=== PATIENT | female | born 1985 | race Caucasian/White ===

== ENCOUNTER 2024-01-07 07:37 | Outpatient (CLI) | payer OTHER, SELFPAY ==
--- NOTE | ~2024-01-07 | XR_ITS ---
XR wrist LT min 3V 01/07/2024 07:49 INDICATION: Left wrist pain after fall PROCEDURE: 4 views left wrist COMPARISON: No prior studies for comparison. FINDINGS: Fracture, dislocation or subluxation is not identified. The soft tissues appear within norm al limits. No foreign bodies are identified. IMPRESSION: 1: NO ACUTE BONE OR JOINT ABNORMALITY IDENTIFIED. Reviewed, dictated and finalized at location B.
== END 2024-01-07 07:38 ==
PROVIDERS: PCP Physician Assistant; Visit Provider Physician Assistant
DX: M25.532 Pain in left wrist (principal)
CPT/HCPCS: 73110

== ENCOUNTER 2025-05-29 20:23 | Emergency (ER) | payer OTHER, SELFPAY ==
--- NOTE | ~2025-05-29 | CT_ITS ---
CT FACIAL BONES WITHOUT CONTRAST INDICATION: Fall COMPARISON: None. TECHNIQUE: Axial 2.5 mm images of the maxillofacial bones/sinuses were obtained without contrast. Additional axial, coronal and sagittal reformatted images were rendered. FINDINGS: Right periorbital soft tissue swelling and soft tissue gas are noted. There is a fracture of the medial right orbital wall. There is fluid within the right ethmoid. Remaining visualized paranasal sinuses and mastoid air cells are clear. Nasal septum is deviated to the left. No soft tissue swelling or foreign body is noted. The temporomandibular joint alignment is maintained. IMPRESSION: Right medial orbital wall fracture with right periorbital soft tissue swelling. There is fluid in the right ethmoid's. All CT scans at this facility are performed using low dose modulation techniques as appropriate to perform exam including the following: automated exposure control; use of iterative reconstruction technique; adjustment of the mA and/or kV according to patient size (this includes techniques or standardized protocols for targeted exams where dose is matched to indication/reason for exam). CT facial & cervical spine wo HISTORY: fall, intoxication COMPARISON: None TECHNIQUE: Axial images of the cervical spine were obtained. Multiplanar reconstruction in the coronal, sagittal and axial reformats to evaluate for cervical fracture. FINDINGS: The images demonstrate no acute fracture or paravertebral soft tissue swelling. There is no high-grade central or foraminal stenosis. No significant degenerative changes are noted. The visualized aspect of the upper lungs are clear. IMPRESSION: No acute fracture or subluxation. All CT scans at this facility are performed using low dose modulation techniques as appropriate to perform exam including the following: automated exposure control; adjustment of the mA and/or kV according to patient size (this includes techniques or standardized protocols for targeted exams where does is matched to indication/reason for exam; i.e. extremities or head); use of iterative reconstruction technique). Reviewed, dictated and finalized at location S. ASSESSOR IMPRESSION: Right medial orbital wall fracture with right periorbital soft tiss ue swelling. There is fluid in the right ethmoid's. All CT scans at this facility are performed using low dose modulation techniqu es as appropriate to perform exam including the following: automated exposure c ontrol; use of iterative reconstruction technique; adjustment of the mA and/or kV according to patient size (this includes techniques or standardized protocol s for targeted exams where dose is matched to indication/reason for exam). CT facial & cervical spine wo HISTORY: fall, intoxication COMPARISON: None TECHNIQUE: Axial images of the cervical spine were obtained. Multiplanar recons truction in the coronal, sagittal and axial reformats to evaluate for cervical fracture. FINDINGS: The images demonstrate no acute fracture or paravertebral soft tissue swelling. There is no high-grade central or foraminal stenosis. No significa nt degenerative changes are noted. The visualized aspect of the upper lungs are clear. IMPRESSION: No acute fracture or subluxation. All CT scans at this facility are performed using low dose modulation techniqu es as appropriate to perform exam including the following: automated exposure c ontrol; adjustment of the mA and/or kV according to patient size (this includes techniques or standardized protocols for targeted exams where does is matched to indication/reason for exam; i.e. extremities or head); use of iterative hussain nstruction technique).
--- NOTE | ~2025-05-29 | CT_ITS ---
CT brain wo con HISTORY:fall, intoxication COMPARISON: None. TECHNIQUE: Axial images were obtained of the head without intravenous contrast. FINDINGS: No acute intracranial hemorrhage, mass effect or midline shift. No extra-axial fluid collections. The calvarium is intact. There is right periorbital soft tissue swelling and gas. There are opacification of the right ethmoid's. IMPRESSION: No acute intracranial hemorrhage or extra axial fluid collections. All CT scans at this facility are performed using low dose modulation techniques as appropriate to perform exam including the following: automated exposure control; use of iterative reconstruction technique; adjustment of the mA and/or kV according to patient size (this includes techniques or standardized protocols for targeted exams where dose is matched to indication/reason for exam). Reviewed, dictated and finalized at location S. 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 All CT scans at this facility are performed using low dose modulation techniqu es as appropriate to perform exam including the following: automated exposure c ontrol; use of iterative reconstruction technique; adjustment of the mA and/or kV according to patient size (this includes techniques or standardized protocol s for targeted exams where dose is matched to indication/reason for exam).
[2025-05-29 20:50] VITALS: BP 109/71; PULSE 109; RESP 23; TEMP 36.8; O2SAT 100
[2025-05-29] MEDS: ONDANSETRON HCL ODT 4 MG TABLET PO (22:47)
[2025-05-29] MEDS: HYDROcodone/acetaminophen (*CRX) 5-325 MG TABLET 1 TAB PO (22:47)
[2025-05-29] MEDS: ACETAMINOPHEN 500 MG TABLET 1000 MG PO (22:47)
[2025-05-30] MEDS: ONDANSETRON HCL ODT 4 MG TABLET PO (00:28)
[2025-05-30 01:02] VITALS: BP 111/75; PULSE 100; RESP 20; O2SAT 100
[2025-05-30] MEDS: TETANUS,DIPHTHERIA,AC PERTUSSIS ADULT (0.5 ML) BOOSTRIX IM (01:14)
[2025-05-30] MEDS: HYDROcodone/acetaminophen (*CRX) 10-325 MG TABLET 1 TAB PO (01:29)
--- NOTE | 2025-05-30 03:11 | ED.GENADULT ---
HPI - General Adult General Chief complaint: Wound/Laceration Stated complaint: Laceration to R eye Time Seen by Provider: 05/29/25 21:29 History of Present Illness HPI narrative: 40-year-old female presenting with a laceration to the right eyebrow following a ground level fall onto a plastic crate. Patient states the crate split in half causing the laceration. She is presently reporting a headache and nausea. Reports no other injuries. Bleeding is controlled. Denies breathing issues, loss of consciousness, vomiting, or dizziness/vision changes. Related Data Home Medications ?Medication ?Instructions ?Recorded ?Confirmed ?Last Taken ?Type baclofen 10 mg tablet 10 mg PO 04/11/23 04/11/23 Unknown History buspirone 15 mg tablet 15 mg PO BID 04/11/23 04/11/23 Unknown History duloxetine 60 mg capsule,delayed mg PO 04/11/23 04/11/23 Unknown History release fluticasone propionate 50 1 spray intranasal DAILY 04/11/23 04/11/23 Unknown History mcg/actuation nasal spray,suspension levothyroxine 75 mcg tablet 75 mcg PO 04/11/23 04/11/23 Unknown History loratadine 10 mg tablet mg PO 04/11/23 04/11/23 Unknown History pregabalin 100 mg capsule 100 mg PO 04/11/23 04/11/23 Unknown History Allergies Allergy/AdvReac Type Severity Reaction Status Date / Time No Known Allergies Allergy Verified 05/29/25 20:55 Review of Systems Review of Systems: All systems reviewed & are unremarkable except as noted in HPI and below PMFSH Past Medical History Medical History (Updated 05/30/25 @ 01:05 by LASHAY Godinez) Anxiety Hypothyroid Surgical History Surgical History (Updated 04/11/23 @ 09:08 by Claudette Mart CMA) Hx laparoscopic cholecystectomy H/O LEEP Social History Social History (Updated 04/11/23 @ 09:09 by Claudette Mart CMA) Smoking status: Current every day smoker Tobacco type: cigarettes Alcohol intake: former Substance use: never Living arrangements: with family Occupation/Education: occupation Gender identity (if verbalized by the patient): Female Sexual Orientation (if Verbalized by the Patient): Straight or Heterosexual Exam Narrative: GENERAL: Disheveled. Uncomfortable. C-collar placed. HEAD: Normocephalic, atraumatic. EYES: PERRLA and EOMI. Right eyebrow laceration approximately v-shaped and full thickness, extending through the dermis. Bruising to upper and lower eyelid. ENT: Nares clear, no rhinorrhea or epistaxis. Mucous membranes moist. Oropharynx without tonsillar hypertrophy exudate or other lesions. Bilateral TMs pearly agarwal non-bulging. No edema or bruising to nose. NECK: Supple. No adenopathy or masses. No carotid bruits or JVD CHEST: Clear to auscultation. No respiratory distress. No wheezes rales or rhonchi HEART: Regular rate and rhythm. No murmur heard. Normal peripheral pulses. ABDOMEN: Soft, nontender, nondistended, normal active bowel sounds. EXTREMITIES: Normal range of motion. No edema. SKIN: Warm, dry, no rash. NEURO: No focal deficits. Alert and oriented x3. PSYCH: Normal mood and affect Course Vital Signs Vital signs: Vital Signs Temperature 98.3 F 05/29/25 20:50 Pulse Rate 109 H 05/29/25 20:50 Respiratory Rate 23 H 05/29/25 20:50 Blood Pressure 109/71 05/29/25 20:50 Pulse Oximetry 100 05/29/25 20:50 Oxygen Delivery Room Air 05/29/25 20:50 Temperature 98.3 F 05/29/25 20:50 Pulse Rate 100 05/30/25 01:02 Respiratory Rate 20 05/30/25 01:02 Blood Pressure 111/75 05/30/25 01:02 Pulse Oximetry 100 05/30/25 01:02 Oxygen Delivery Room Air 05/29/25 20:50 Procedures Laceration Laceration 1: Date: 05/30/25 Time: 01:00 Size (cm): 3 Description: flap Depth: simple, single layer Local Anesthetic: lidocaine 1% Amount of anesthesia used (mL): 8 Pre-repair: wound explored and irrigated ====== Skin Level ====== Skin layer closed with: vicryl Size (cm): 5-0 Number of sutures: 8 Technique: simple, interrupted ====== Subcutaneous Layer ====== Subcutaneous layer closed with: vicryl Size: 5-0 Number of sutures: 4 Technique: other ====== Muscle Layer ====== ====== Tendon Layer ====== [facility] Narrative Medical decision making narrative: 40-year-old female presenting with a laceration to the right eyebrow following a ground level fall onto a plastic crate. Patient states the crate split in half causing the laceration. She is presently reporting a headache and nausea. Reports no other injuries. Bleeding is controlled. Denies breathing issues, loss of consciousness, vomiting, or dizziness/vision changes. Upon my initial assessment, patient's appears disheveled with blood covering her shirt. Vitals were stable and bleeding controlled. Imaging demonstrates no acute fractures. C-collar removed. Administered pain medication and Zofran. No focal neurological deficits seen; patient was noted to be etoh+ in triage. Extraocular eye movements are intact and equal bilaterally with no evidence of entrapment. Verbal consent was obtained prior to the procedure. The wound was cleaned and irrigated with copious amounts of normal saline. Lidocaine 1% without epinephrine was used for anesthesia. Wound was explored and no foreign body was seen. The wound was then closed with 4 5-0 Vicryl in deep dermal fashion then 8 5-0 Vicryl in simple interrupted fashion. A sterile dressing was applied following the procedure. Patient tolerated the procedure well. Plan to discharge home with short term pain regimen, Zofran, and antibiotics. Tetanus updated. All questions answered. Given reasons to return. Differential Diagnosis Differential Diagnosis: Differential diagnostic considerations for wound laceration include laceration, abscess, abrasion, avulsion of skin, skin foreign body. Medical Records I have reviewed the following patient records and this information was taken into consideration when formulating the assessment and plan.: previous labs and previous clinic visits Imaging Data Attestation: I personally reviewed and interpreted this imaging study as follows: Radiologist's impression: ITS Impressions Head CT 05/29/25 21:32 IMPRESSION: No acute intracranial hemorrhage or extra axial fluid collections. All CT scans at this facility are performed using low dose modulation techniques as appropriate to perform exam including the following: automated exposure control; use of iterative reconstruction technique; adjustment of the mA and/or kV according to patient size (this includes techniques or standardized protocols for targeted exams where dose is matched to indication/reason for exam). Head/Cervical Spine/Facial Bones CT 05/29/25 21:33 IMPRESSION: Right medial orbital wall fracture with right periorbital soft tissue swelling. There is fluid in the right ethmoid's. All CT scans at this facility are performed using low dose modulation techniques as appropriate to perform exam including the following: automated exposure control; use of iterative reconstruction technique; adjustment of the mA and/or kV according to patient size (this includes techniques or standardized protocols for targeted exams where dose is matched to indication/reason for exam). CT facial & cervical spine wo HISTORY: fall, intoxication COMPARISON: None TECHNIQUE: Axial images of the cervical spine were obtained. Multiplanar reconstruction in the coronal, sagittal and axial reformats to evaluate for cervical fracture. FINDINGS: The images demonstrate no acute fracture or paravertebral soft tissue swelling. There is no high-grade central or foraminal stenosis. No significant degenerative changes are noted. The visualized aspect of the upper lungs are clear. IMPRESSION: No acute fracture or subluxation. All CT scans at this facility are performed using low dose modulation techniques as appropriate to perform exam including the following: automated exposure control; adjustment of the mA and/or kV according to patient size (this includes techniques or standardized protocols for targeted exams where does is matched to indication/reason for exam; i.e. extremities or head); use of iterative reconstruction technique). Discharge Plan Discharge Clinical Impression: Laceration, Head injury due to trauma, Headache Patient Disposition: Home Condition: Stable Instructions: Care For Your Stitches (ED), Laceration (ED) Additional Instructions: Return to the emergency department if you experience fever, redness or swelling of your wound, abnormal drainage from your wound, or any other symptoms that are concerning to you. Apply antibiotic ointment daily. Do not soak the wound. Clean with mild soap and water daily. Follow-up with your primary care doctor. Patient Language: Mohawk Prescriptions: New hydrocodone-acetaminophen 5-325 mg tablet 1 tablet PO Q6H PRN (Reason: pain) Qty: 14 0RF ondansetron 4 mg tablet,disintegrating 4 mg PO Q6H PRN (Reason: nausea and vomiting) Qty: 10 0RF cephalexin 500 mg capsule 500 mg PO Q6H Qty: 28 0RF No Action loratadine 10 mg tablet PO duloxetine 60 mg capsule,delayed release(DR/EC) PO levothyroxine 75 mcg tablet 75 mcg PO pregabalin 100 mg capsule 100 mg PO baclofen 10 mg tablet 10 mg PO fluticasone propionate 50 mcg/actuation spray,suspension 1 spray intranasal DAILY Rx Instructions: administer into each nostril buspirone 15 mg tablet 15 mg PO BID nystatin 100,000 unit/gram powder 1 applic topical BID Qty: 15 1RF fluconazole 150 mg tablet 150 mg PO ONCE Qty: 1 0RF Rx Instructions: as a single dose Follow-up/Referrals: Zoraida,LASHAY Wilhelm [Primary Care Provider, Unknown]
== END 2025-05-30 01:31 | disposition home or self-care (01) ==
PROVIDERS: PCP Physician Assistant
DX: S01.111A Laceration without foreign body of right eyelid and periocular area, initial encounter (principal); E03.9 Hypothyroidism, unspecified; F17.210 Nicotine dependence, cigarettes, uncomplicated; Z23 Encounter for immunization; W18.30XA Fall on same level, unspecified, initial encounter
CPT/HCPCS: 12042; 70450; 70486; 72125; 90471; 90715; 99284; A9270